=== PATIENT | female | born 1960 | race Caucasian/White ===

== ENCOUNTER 2018-04-10 09:52 | Outpatient (CLI) | payer OTHER ==
[~2018-04-10 09:52] MED LIST: HYDR-569 PO
[2018-04-10 10:20] LABS: BASOPHILS % (AUTO) 0.5 % (0-1); EOSINOPHILS # (AUTO) 0.1 X10'3 (0-0.9); EOSINOPHILS % (AUTO) 1.8 % (0-6); HEMOGLOBIN 13.4 g/dl (12.0-16.0); LYMPHOCYTES # (AUTO) 2.2 X10'3 (1.1-4.8); LYMPHOCYTES % (AUTO) 38.1 % (21-51); MEAN CORPUSCULAR HEMOGLOBIN 31.9 PG (27.0-31.0); MEAN CORPUSCULAR HGB CONC 34.4 % (33.0-36.5); MEAN CORPUSCULAR VOLUME 92.9 FL (78-98); MEAN PLATELET VOLUME 7.1 FL (7.4-10.4); MONOCYTES # (AUTO) 0.5 X10'3 (0-0.9); MONOCYTES % (AUTO) 8.6 % (2-12); PLATELET COUNT 338 X10'3 (140-440); RED CELL DISTRIBUTION WIDTH 13.6 % (11.5-14.5); WHITE BLOOD COUNT 5.9 X10'3 (4.5-11.0)
[2018-04-10 10:44] LABS: ALANINE AMINOTRANSFERASE 17 U/L (12-78); ALBUMIN 3.9 G/DL (3.4-5.0); ALKALINE PHOSPHATASE 139 IU/L (46-116); ANION GAP 9 (8-16); ASPARTATE AMINO TRANSFERASE 17 U/L (10-37); BILIRUBIN,TOTAL 0.4 MG/DL (0.1-1.0); BLOOD UREA NITROGEN 11 MG/DL (7-18); CHLORIDE 102 MMOL/L (99-107); CHOL/HDL RATIO 2.2 (0.00-4.99); CHOLESTEROL 213 MG/DL (0-200); CREATININE 0.61 MG/DL (0.40-0.90); GLUCOSE 102 MG/DL (70-104); HDL CHOLESTEROL 97 MG/DL (35-60); LDL CHOLESTEROL 110 MG/DL (50-100); POTASSIUM 3.7 MMOL/L (3.5-5.1); SODIUM 138 MMOL/L (135-145); TOTAL CARBON DIOXIDE 27.4 MMOL/L (24-32); TRIGLYCERIDES 49 MG/DL (20-135); eGFR > 90 ML/MIN
[2018-04-10 10:45] LABS: CLARITY,URINE SLIGHTLY CLOUDY (Clear); COLOR,URINE STRAW (Yellow); GLUCOSE, URINE NEGATIVE (Neg); KETONES,URINE NEGATIVE (Neg); LEUKOCYTE ESTERASE ,URINE NEGATIVE (Neg); NITRITES, URINE NEGATIVE (Neg); OCCULT BLOOD,URINE NEGATIVE (Neg); PROTEIN,URINE NEGATIVE (Neg); UROBILINOGEN,URINE 0.2 E.U/dL (0.2-1.0)
[2018-04-10 10:51] LABS: UA COLLECTION TYPE CLN CATCH MIDSTREAM
[2018-04-10 10:56] LABS: MUCUS STRANDS FEW /LPF (Neg); SQUAMOUS EPITHELIAL CELL,UR FEW /LPF (FEW)
[2018-04-10 10:57] LABS: BACTERIA,URINE 1+ /HPF (Neg); RBC,URINE NONE SEEN /HPF (0-2); WBC,URINE 0-4 /HPF (0-4)
== END 2018-04-10 23:59 | disposition home or self-care (01) ==
LOC: LAB 09:52
PROVIDERS: ATTEND Family Medicine
DX: Z00.01 Encounter for general adult medical examination with abnormal findings (principal); R53.83 Other fatigue; Z87.891 Personal history of nicotine dependence
CPT/HCPCS: 36415; 80053; 80061; 81001; 84439; 84443; 85025

== ENCOUNTER 2021-01-18 08:11 | Inpatient (IN) | payer MEDICAID, OTHER ==
[~2021-01-18] VITALS: Ht 160 cm; Wt 87.7 kg
[2021-01-18] VITALS (8 sets, daily range): BP systolic 124–168; BP diastolic 58–84
[~2021-01-18 08:11] MED LIST changes: +HYDR-4383 PO; -HYDR-569 PO
[2021-01-18 08:47] LABS: BASOPHILS % (AUTO) 0.6 % (0-1); EOSINOPHILS % (AUTO) 0.7 % (0-6); HEMATOCRIT 40.3 % (35.0-45.0); HEMOGLOBIN 13.5 g/dl (12.0-16.0); LYMPHOCYTES # (AUTO) 1.6 X10'3 (1.1-4.8); LYMPHOCYTES % (AUTO) 28.3 % (21-51); MEAN CORPUSCULAR HEMOGLOBIN 31.6 PG (27.0-31.0); MEAN CORPUSCULAR HGB CONC 33.5 g/dL (33.0-36.5); MEAN CORPUSCULAR VOLUME 94.3 FL (78-98); MEAN PLATELET VOLUME 7.5 FL (7.4-10.4); MONOCYTES # (AUTO) 0.5 X10'3 (0-0.9); MONOCYTES % (AUTO) 8.2 % (2-12); NEUTROPHILS # (AUTO) 3.5 X10'3 (1.8-7.7); NEUTROPHILS % (AUTO) 62.2 % (42-75); PLATELET COUNT 362 X10'3 (140-440); RED BLOOD COUNT 4.28 X10'6 (4.20-5.60); RED CELL DISTRIBUTION WIDTH 13.6 % (11.5-14.5); WHITE BLOOD COUNT 5.6 X10'3 (4.5-11.0)
[2021-01-18 09:05] LABS: ALANINE AMINOTRANSFERASE 15 U/L (12-78); ALKALINE PHOSPHATASE 150 IU/L (46-116); ANION GAP 6 (8-16); ASPARTATE AMINO TRANSFERASE 14 U/L (10-37); BILIRUBIN,TOTAL 0.4 MG/DL (0.1-1.0); CALCIUM 9.9 MG/DL (8.5-10.1); CHLORIDE 105 MMOL/L (99-107); CREATININE 0.64 MG/DL (0.40-0.90); GLUCOSE 104 MG/DL (70-104); SODIUM 140 MMOL/L (135-145); TOTAL CARBON DIOXIDE 28.9 MMOL/L (24-32); eGFR > 90 ML/MIN
[2021-01-18 09:09] LABS: BLOOD UREA NITROGEN 10 MG/DL (7-18); BUN/CREATININE RATIO 15.6 (6.6-38.0)
[2021-01-18] MEDS ORDERED: aspirin 81mg tab.chew PO ONE (09:10)
[2021-01-18] MEDS ORDERED: acetaminophen 325mg tablet PO ONE (09:40)
[2021-01-18] MEDS ORDERED: aminophylline 250mg/10ml inj. IV PRN (12:45)
[2021-01-18] MEDS ORDERED: regadenoson 0.4mg/5ml syringe IV ONE (12:45)
[2021-01-18] MEDS ORDERED: metoprolol tartrate 1mg/ml inj IV PRN (12:45)
[2021-01-18] MEDS ORDERED: nitroGLYCERIN 0.4mg SUBLingual tab SL PRN (12:45)
[2021-01-18] MEDS ORDERED: regadenoson 0.4mg/5ml syringe IV PRN (12:55)
[2021-01-18] MEDS ORDERED: NO HOME MEDS (13:00)
[2021-01-18] MEDS ORDERED: ondansetron/PF 4mg/2ml inj IV PRN (13:20)
[2021-01-18] MEDS ORDERED: potassium Cl 20 mEq SR tablet PO PRN ×2 (13:20)
[2021-01-18] MEDS ORDERED: magnesium 4gm in 100ml NS 100 ML IV PRN (13:20)
[2021-01-18] MEDS ORDERED: HYDROcodone/acetaminophen 5mg/325mg tablet PO PRN (13:20)
[2021-01-18] MEDS ORDERED: potassium Cl 40MEQ/1/2NS 520ml 520 ML IV PRN ×2 (13:20)
[2021-01-18] MEDS ORDERED: HYDROcodone/acetaminophen 10/325mg tab PO PRN (13:20)
[2021-01-18] MEDS ORDERED: mag hydrox/Alum hydrox/simeth 30ml oral suspension PO PRN (13:20)
[2021-01-18] MEDS ORDERED: magnesium hydroxide 30ml (MOM) UD suspension PO PRN (13:20)
[2021-01-18] MEDS ORDERED: PERFLUTREN PROTEIN-A MICROSPHR (Optison) 0.22 MG/ML 3ML VIAL IV ONE (13:20)
[2021-01-18] MEDS ORDERED: magnesium 2GM in 50ml NS 50 ML IV PRN (13:20)
--- NOTE | 2021-01-18 15:24 | NUR ---
PT TAKEN TO HAVE STRESS TEST
[2021-01-18] MEDS ORDERED: iohexol 350MG/ML 100ml bottle IV ONE (15:42)
--- NOTE | 2021-01-18 17:21 | NUR ---
PT STILL AT [facility] [place]
--- NOTE | 2021-01-18 17:45 | NUR ---
PT ARRIVED BACK FROM STRESS TEST
--- NOTE | 2021-01-18 19:06 | NUR ---
PT SPEAKING WITH TELE-NEURO DR AT THIS TIME.
--- NOTE | 2021-01-18 19:16 | NUR ---
SPOKE W/ TELE NEURO MD WITH VERBAL ORDER FOR ESR AND CRP LABS
[2021-01-18 19:49] LABS: C-REACTIVE PROTEIN 0.48 MG/DL (0.0-0.5)
[2021-01-18] MEDS: K and/or MAG REPLACEMENT MC SCH (20:00)
[2021-01-18] MEDS ORDERED: enoxaparin 40mg/0.4ml syringe SQ SCH (20:00)
--- NOTE | 2021-01-18 20:10 | NUR ---
PT TO FLOOR FOR ADMIT
[2021-01-18] MEDS: acetaminophen 325mg tablet PO PRN (20:18)
--- NOTE | 2021-01-19 06:06 | NUR ---
Patient in room [facility] 4024. I have received report from Michelle PEREZ and had the opportunity to ask questions and assume patient care. Patient awake requesting toothbrush and morning supplies for am care.
[2021-01-19 06:40] LABS: ALANINE AMINOTRANSFERASE 21 U/L (12-78); ALBUMIN 4.2 G/DL (3.4-5.0); ALKALINE PHOSPHATASE 113 IU/L (46-116); ANION GAP 10 (8-16); ASPARTATE AMINO TRANSFERASE 19 U/L (10-37); BILIRUBIN,TOTAL 0.4 MG/DL (0.1-1.0); BLOOD UREA NITROGEN 15 MG/DL (7-18); BUN/CREATININE RATIO 23.1 (6.6-38.0); CALCIUM 9.4 MG/DL (8.5-10.1); CHLORIDE 105 MMOL/L (99-107); CHOL/HDL RATIO 2.3 (0.00-4.99); CHOLESTEROL 241 MG/DL (0-200); CREATININE 0.65 MG/DL (0.40-0.90); GLUCOSE 97 MG/DL (70-104); HDL CHOLESTEROL 104 MG/DL (35-60); LDL CHOLESTEROL 114 MG/DL (50-100); MAGNESIUM 2.2 MG/DL (1.5-2.4); POTASSIUM 4.1 MMOL/L (3.5-5.1); SODIUM 140 MMOL/L (135-145); TOTAL CARBON DIOXIDE 24.7 MMOL/L (24-32); TOTAL PROTEIN 8.6 G/DL (6.4-8.2); TRIGLYCERIDES 61 MG/DL (20-135); eGFR > 90 ML/MIN
[2021-01-19 07:00] VITALS: BP 126/76
--- NOTE | 2021-01-19 07:08 | NUR ---
PAGER ID: [phone] MESSAGE: Justice [phone] Re: ;Wallace [phone] patient has not diet ordered would like to eat please call
[2021-01-19] MEDS: acetaminophen 325mg tablet PO PRN (07:44)
[2021-01-19 07:55] LABS: BASOPHILS % (AUTO) 0.7 % (0-1); EOSINOPHILS # (AUTO) 0.1 X10'3 (0-0.9); EOSINOPHILS % (AUTO) 1.7 % (0-6); HEMATOCRIT 42.8 % (35.0-45.0); HEMOGLOBIN 14.5 g/dl (12.0-16.0); LYMPHOCYTES # (AUTO) 1.6 X10'3 (1.1-4.8); LYMPHOCYTES % (AUTO) 32.2 % (21-51); MEAN CORPUSCULAR HEMOGLOBIN 31.9 PG (27.0-31.0); MEAN CORPUSCULAR HGB CONC 33.9 g/dL (33.0-36.5); MEAN CORPUSCULAR VOLUME 94.3 FL (78-98); MEAN PLATELET VOLUME 7.2 FL (7.4-10.4); MONOCYTES # (AUTO) 0.5 X10'3 (0-0.9); MONOCYTES % (AUTO) 10.7 % (2-12); NEUTROPHILS # (AUTO) 2.8 X10'3 (1.8-7.7); NEUTROPHILS % (AUTO) 54.7 % (42-75); PLATELET COUNT 358 X10'3 (140-440); RED BLOOD COUNT 4.54 X10'6 (4.20-5.60); RED CELL DISTRIBUTION WIDTH 13.8 % (11.5-14.5); WHITE BLOOD COUNT 5.1 X10'3 (4.5-11.0)
[2021-01-19] MEDS ORDERED: methylPREDNISolone sod succ 125mg/2ml vial IV SCH (07:55)
[2021-01-19] MEDS: K and/or MAG REPLACEMENT MC SCH (08:00)
[2021-01-19] MEDS ORDERED: atorvastatin 20mg tablet PO SCH (08:00)
[2021-01-19] MEDS ORDERED: METHYLPREDNISOLONE SOD SUC IV SCH (08:00)
[2021-01-19] MEDS ORDERED: aspirin 81mg tablet.DR PO SCH (08:00)
[2021-01-19] MEDS ORDERED: D5W IV SCH (08:00)
[2021-01-19] MEDS ORDERED: methylPREDNISolone sod succ 500 MG in dextrose 5%-water 50ml 50 ML IV SCH (08:44)
[2021-01-19] MEDS ORDERED: DEXTROSE 5% IV SCH ×2 (08:46→09:39)
[2021-01-19] MEDS ORDERED: METHYLPREDNISOLONE SOD SUCC IV SCH ×2 (08:46→09:39)
[2021-01-19] MEDS ORDERED: WATER IV SCH ×2 (08:46→09:39)
[2021-01-19 10:00] VITALS: BP 137/81
--- NOTE | 2021-01-19 10:51 | NUR ---
Sent request for Tele med through [facility] awaiting consult
--- NOTE | 2021-01-19 11:18 | NUR ---
PAGER ID: [phone] MESSAGE: Justice [phone] Re: Wallace [phone] Tele Neuro complete report in chart
[2021-01-19] MEDS ORDERED: ATOR20TA66 PO (12:10)
--- NOTE | 2021-01-19 13:09 | NUR ---
DC INSTRUCTIONS GIVEN, QUESTIONS ANSWERED. IV REMOVED CANULA INTACT, NO COMPLICATIONS. TELE MONITOR REMOVED. PT DRESSED SELF. WALKED PT DOWN WITH IN STABLE CONDITION.
[2021-01-22] MEDS ORDERED: predniSONE 20 mg tablet PO SCH (08:00)
== END 2021-01-19 13:00 | disposition home or self-care (01) | DRG 203 ==
LOC: ER 08:11 → ED HOLD 13:17 → ORTHO 4S 20:30 → OBSVTOIN 01-19 07:52
PROVIDERS: ADMIT Family Medicine; ATTEND Family Medicine
PROC: 4A02XM4 Measurement of Cardiac Total Activity, External Approach (ICD-10-PCS; principal; 2021-01-18)
PROC: 3E073KZ Introduction of Other Diagnostic Substance into Coronary Artery, Percutaneous Approach (ICD-10-PCS; 2021-01-18)
PROC: B3251ZZ Computerized Tomography (CT Scan) of Bilateral Common Carotid Arteries using Low Osmolar Contrast (ICD-10-PCS; 2021-01-18)
PROC: B32G1ZZ Computerized Tomography (CT Scan) of Bilateral Vertebral Arteries using Low Osmolar Contrast (ICD-10-PCS; 2021-01-18)
PROC: B32R1ZZ Computerized Tomography (CT Scan) of Intracranial Arteries using Low Osmolar Contrast (ICD-10-PCS; 2021-01-18)
PROC: B3281ZZ Computerized Tomography (CT Scan) of Bilateral Internal Carotid Arteries using Low Osmolar Contrast (ICD-10-PCS; 2021-01-18)
DX: M94.0 Chondrocostal junction syndrome [Tietze] (principal); G45.9 Transient cerebral ischemic attack, unspecified; E78.5 Hyperlipidemia, unspecified; G45.3 Amaurosis fugax; F12.90 Cannabis use, unspecified, uncomplicated; I10 Essential (primary) hypertension; Z79.82 Long term (current) use of aspirin; Z80.1 Family history of malignant neoplasm of trachea, bronchus and lung; Z82.49 Family history of ischemic heart disease and other diseases of the circulatory system; Z83.3 Family history of diabetes mellitus; Z80.9 Family history of malignant neoplasm, unspecified; Z87.891 Personal history of nicotine dependence
CPT/HCPCS: 36415; 70450; 70496; 70498; 70551; 71045; 78452; 80053; 80061; 83735; 83880; 84484; 85025; 85379; 85651; 86140; 87081; 93005; 93017; 93306; 96372; 99285; A9500; G0378; J1650; J2785; J2930; J7060; Q9967